=== PATIENT | female | born 1945 | race Caucasian/White ===

== ENCOUNTER → 2017-09-29 18:00 | Outpatient (CLI) | payer MEDICARE, OTHER ==
[2011-07-15 07:37] VITALS: BMI 26.6
== END | disposition home or self-care (01) ==
LOC: D.LABREF 18:00
DX: N39.0 Urinary tract infection, site not specified (principal)

== ENCOUNTER → 2017-10-05 12:06 | Outpatient (CLI) | payer MEDICARE, OTHER ==
[2011-07-15 07:37] VITALS: BMI 26.6
== END | disposition home or self-care (01) ==
LOC: D.LABREF 12:06
DX: R19.7 Diarrhea, unspecified (principal)

== ENCOUNTER → 2017-11-19 12:54 | Outpatient (CLI) | payer MEDICARE, OTHER ==
[2011-07-15 07:37] VITALS: BMI 26.6
[2017-11-19 13:25] LABS: APPEARANCE SLT CLOUDY (CLEAR); BILIRUBIN NEGATIVE (NEGATIVE); COLOR YELLOW (YELLOW); GLUCOSE NEGATIVE (NEGATIVE); KETONE NEGATIVE (NEGATIVE); NITRITE POSITIVE (NEGATIVE); PROTEIN NEGATIVE (NEGATIVE); UROBILINOGEN NORMAL (NORMAL)
[2017-11-19 13:27] LABS: EPITHELIAL CELLS 0-5 /hpf (0-5); RED CELLS - URINE 0-5 /hpf (0-5); WHITE CELLS - URINE >50 /hpf (0-5)
[2017-11-19 13:28] LABS: BACTERIA MODERATE /hpf (NONE SEEN)
== END | disposition home or self-care (01) ==
LOC: D.LAB 12:54
PROVIDERS: Student in an Organized Health Care Education/Training Program
DX: N39.0 Urinary tract infection, site not specified (principal)

== ENCOUNTER → 2017-11-23 13:45 | Outpatient (CLI) | payer MEDICARE, OTHER ==
[2011-07-15 07:37] VITALS: BMI 26.6
[2017-11-23 15:27] LABS: APPEARANCE HAZY (CLEAR); BILIRUBIN NEGATIVE (NEGATIVE); COLOR YELLOW (YELLOW); GLUCOSE NEGATIVE (NEGATIVE); KETONE NEGATIVE (NEGATIVE); NITRITE NEGATIVE (NEGATIVE); PROTEIN TRACE mg/dL (NEGATIVE); UROBILINOGEN NORMAL (NORMAL)
[2017-11-23 15:28] LABS: WHITE CELLS - URINE >50 /hpf (0-5)
[2017-11-23 15:29] LABS: RED CELLS - URINE 0-5 /hpf (0-5)
[2017-11-23 15:30] LABS: BACTERIA FEW /hpf (NONE SEEN); EPITHELIAL CELLS 0-5 /hpf (0-5)
== END | disposition home or self-care (01) ==
LOC: D.LABREF 13:45
PROVIDERS: Student in an Organized Health Care Education/Training Program
DX: N39.0 Urinary tract infection, site not specified (principal)

== ENCOUNTER → 2017-12-17 11:59 | Outpatient (CLI) | payer MEDICARE, OTHER ==
[2011-07-15 07:37] VITALS: BMI 26.6
[2017-12-17 13:43] LABS: APPEARANCE CLOUDY (CLEAR); BACTERIA MODERATE /hpf (NONE SEEN); BILIRUBIN NEGATIVE (NEGATIVE); COLOR YELLOW (YELLOW); GLUCOSE NEGATIVE (NEGATIVE); KETONE NEGATIVE (NEGATIVE); NITRITE NEGATIVE (NEGATIVE); PROTEIN NEGATIVE (NEGATIVE); RED CELLS - URINE RARE /hpf (0-5); UROBILINOGEN NORMAL (NORMAL); WHITE CELLS - URINE >50 /hpf (0-5)
== END | disposition home or self-care (01) ==
LOC: D.LABREF 11:59
PROVIDERS: Student in an Organized Health Care Education/Training Program
DX: N39.0 Urinary tract infection, site not specified (principal)

== ENCOUNTER → 2017-12-21 12:15 | Outpatient (CLI) | payer MEDICARE, OTHER ==
[2011-07-15 07:37] VITALS: BMI 26.6
[2017-12-21 13:25] LABS: APPEARANCE SLT CLOUDY (CLEAR); BILIRUBIN NEGATIVE (NEGATIVE); COLOR YELLOW (YELLOW); GLUCOSE NEGATIVE (NEGATIVE); KETONE NEGATIVE (NEGATIVE); NITRITE NEGATIVE (NEGATIVE); PROTEIN NEGATIVE (NEGATIVE); UROBILINOGEN NORMAL (NORMAL)
[2017-12-21 13:26] LABS: BACTERIA MODERATE /hpf (NONE SEEN); EPITHELIAL CELLS 0-5 /hpf (0-5); RED CELLS - URINE 0-5 /hpf (0-5); WHITE CELLS - URINE >50 /hpf (0-5)
== END | disposition home or self-care (01) ==
LOC: D.LABREF 12:15
PROVIDERS: Student in an Organized Health Care Education/Training Program
DX: N39.0 Urinary tract infection, site not specified (principal)

== ENCOUNTER → 2018-01-14 13:58 | Outpatient (CLI) | payer MEDICARE, OTHER ==
[2011-07-15 07:37] VITALS: BMI 26.6
[~2018-01-14 13:58] MED LIST: AMITRIPTYLINE150 MG PO; BENTYL10 MG PO; CALCIUM 600+D T1 TA1 PO; CARAFATE1 G PO; CIPRO500 MG PO; CO Q-1030 MG PO; COREG6.25 MG PO; CRANBERRY 400 M1 TA1 PO; EVOXAC30 MG PO; FERROUS SULFAT325 MG PO; FORTEO PEN20 MCG SQ; HYDROCODON-ACE1 EAC7 PO; K-TAB10 MEQ PO; LIPITOR20 MG PO; LOSARTAN POTASS25 MG PO; NORVASC2.5 MG PO; OMEPRAZOLE20 M1 PO; PLAQUENIL200 MG PO; PROBIOTIC BLEN1 EACH PO; TUMERIC PO; ULTRAM50 MG PO; XANAX0.25 MG PO; XARELTO20 MG PO
[2018-01-14 18:07] LABS: APPEARANCE CLEAR (CLEAR); BILIRUBIN NEGATIVE (NEGATIVE); COLOR YELLOW (YELLOW); GLUCOSE NEGATIVE (NEGATIVE); KETONE NEGATIVE (NEGATIVE); NITRITE NEGATIVE (NEGATIVE); PROTEIN NEGATIVE (NEGATIVE); UROBILINOGEN NORMAL (NORMAL); WHITE CELLS - URINE >50 /hpf (0-5)
[2018-01-14 18:08] LABS: BACTERIA MODERATE /hpf (NONE SEEN); EPITHELIAL CELLS 0-5 /hpf (0-5)
[2018-03-24 15:51] VITALS: BMI 22.6
== END | disposition home or self-care (01) ==
LOC: D.LABREF 13:58
PROVIDERS: Student in an Organized Health Care Education/Training Program
DX: N39.0 Urinary tract infection, site not specified (principal)

== ENCOUNTER → 2018-01-21 10:30 | Outpatient (CLI) | payer MEDICARE, OTHER ==
[2011-07-15 07:37] VITALS: BMI 26.6
[2018-03-24 15:51] VITALS: BMI 22.6
== END | disposition home or self-care (01) ==
LOC: D.CT 10:30
DX: Z87.442 Personal history of urinary calculi (principal)

== ENCOUNTER → 2018-02-04 16:31 | Outpatient (CLI) | payer MEDICARE, OTHER ==
[2011-07-15 07:37] VITALS: BMI 26.6
[2018-03-24 15:51] VITALS: BMI 22.6
== END | disposition home or self-care (01) ==
LOC: D.LABREF 16:31
DX: N39.0 Urinary tract infection, site not specified (principal)

== ENCOUNTER 2018-02-22 08:00 | Outpatient (CLI) | payer MEDICARE, OTHER ==
[2018-02-22 10:30] LABS: HEMATOCRIT 33.4 % (36.0-48.0); HEMOGLOBIN 11.5 g/dL (12-16); MCH 29.4 pg (26.0-34.0); MCHC 34.4 g/dL (31.0-37.0); MCV 85.4 fL (80.0-100.0); MEAN PLATELET VOLUME 9.3 fL (7.4-10.4); RBC 3.91 10x6/uL (4.00-5.40); RDW 12.6 % (11.5-14.5)
[2018-02-22] MEDS ORDERED: LOSARTAN POTASS25 MG PO (10:58)
[2018-02-22] MEDS ORDERED: K-TAB10 MEQ PO (10:59)
[2018-02-22] MEDS ORDERED: EVOXAC30 MG PO (10:59)
[2018-02-22 11:00] LABS: APPEARANCE CLEAR (CLEAR); BACTERIA FEW /hpf (NONE SEEN); BILIRUBIN NEGATIVE (NEGATIVE); COLOR YELLOW (YELLOW); EPITHELIAL CELLS RARE /hpf (0-5); GLUCOSE NEGATIVE (NEGATIVE); KETONE NEGATIVE (NEGATIVE); NITRITE NEGATIVE (NEGATIVE); PROTEIN NEGATIVE (NEGATIVE); UROBILINOGEN NORMAL (NORMAL); WHITE CELLS - URINE 0-5 /hpf (0-5)
[2018-02-22] MEDS ORDERED: AMITRIPTYLINE150 MG PO (11:00)
[2018-02-22] MEDS ORDERED: OMEPRAZOLE20 M1 PO (11:00)
[2018-02-22] MEDS ORDERED: COREG6.25 MG PO (11:00)
[2018-02-22] MEDS ORDERED: PLAQUENIL200 MG PO (11:00)
[2018-02-22] MEDS ORDERED: CARAFATE1 G PO (11:01)
[2018-02-22] MEDS ORDERED: FORTEO PEN20 MCG SQ (11:01)
[2018-02-22] MEDS ORDERED: NORVASC2.5 MG PO (11:01)
[2018-02-22] MEDS ORDERED: XARELTO20 MG PO (11:01)
[2018-02-22] MEDS ORDERED: ULTRAM50 MG PO ×2 (11:02)
[2018-02-22] MEDS ORDERED: LIPITOR20 MG PO (11:02)
[2018-02-22] MEDS ORDERED: PROBIOTIC BLEN1 EACH PO (11:03)
[2018-02-22] MEDS ORDERED: XANAX0.25 MG PO (11:03)
[2018-02-22] MEDS ORDERED: CALCIUM 600+D T1 TA1 PO (11:04)
[2018-02-22] MEDS ORDERED: CRANBERRY 400 M1 TA1 PO (11:04)
[2018-02-22] MEDS ORDERED: FERROUS SULFAT325 MG PO (11:05)
[2018-02-22] MEDS ORDERED: CO Q-1030 MG PO (11:05)
[2018-02-22] MEDS ORDERED: TUMERIC PO (11:05)
[2018-03-22] MEDS ORDERED: CIPRO500 MG PO (09:06)
[2018-03-24 15:51] VITALS: BMI 22.6
== END 2018-02-22 08:01 | disposition home or self-care (01) ==
LOC: D.OPS 08:00 → D.PAN 02-24 08:00 → D.OPS 02-24 08:00 → EDSTATUS 02-24 08:00
PROVIDERS: Anesthesiology; Urology
DX: N39.3 Stress incontinence (female) (male) (principal); N81.10 Cystocele, unspecified; N81.6 Rectocele; Z01.810 Encounter for preprocedural cardiovascular examination; Z01.811 Encounter for preprocedural respiratory examination; Z01.812 Encounter for preprocedural laboratory examination

== ENCOUNTER → 2018-02-24 18:10 | Outpatient (CLI) | payer MEDICARE, OTHER ==
[2011-07-15 07:37] VITALS: BMI 26.6
== END | disposition home or self-care (01) ==
LOC: D.LABREF 18:10
DX: N39.0 Urinary tract infection, site not specified (principal)

== ENCOUNTER → 2018-03-08 17:24 | Outpatient (CLI) | payer MEDICARE, OTHER ==
[2011-07-15 07:37] VITALS: BMI 26.6
[2018-03-08 18:09] LABS: APPEARANCE HAZY (CLEAR); BILIRUBIN NEGATIVE (NEGATIVE); COLOR DK YELLOW (YELLOW); GLUCOSE NEGATIVE (NEGATIVE); KETONE NEGATIVE (NEGATIVE); NITRITE POSITIVE (NEGATIVE); PROTEIN 1+ mg/dL (NEGATIVE); SPECIFIC GRAVITY 1.015 (1.005-1.020); UROBILINOGEN NORMAL (NORMAL)
[2018-03-08 18:11] LABS: BACTERIA MODERATE /hpf (NONE SEEN); EPITHELIAL CELLS 0-5 /hpf (0-5); RED CELLS - URINE >50 /hpf (0-5); WHITE CELLS - URINE >50 /hpf (0-5)
== END | disposition home or self-care (01) ==
LOC: D.LABREF 17:24
PROVIDERS: Urology
DX: N39.0 Urinary tract infection, site not specified (principal)

== ENCOUNTER 2018-03-24 05:55 | Day surgery (SDC) | payer MEDICARE, OTHER ==
[2018-03-22 09:37] LABS: HEMATOCRIT 33.6 % (36.0-48.0); HEMOGLOBIN 11.4 g/dL (12-16); MCH 29.1 pg (26.0-34.0); MCHC 33.9 g/dL (31.0-37.0); MCV 85.7 fL (80.0-100.0); MEAN PLATELET VOLUME 9.5 fL (7.4-10.4); RBC 3.92 10x6/uL (4.00-5.40); RDW 12.3 % (11.5-14.5)
[2018-03-22 09:59] LABS: APPEARANCE CLEAR (CLEAR); BILIRUBIN NEGATIVE (NEGATIVE); COLOR YELLOW (YELLOW); GLUCOSE NEGATIVE (NEGATIVE); KETONE NEGATIVE (NEGATIVE); NITRITE NEGATIVE (NEGATIVE); PROTEIN NEGATIVE (NEGATIVE); UROBILINOGEN NORMAL (NORMAL)
[2018-03-22 10:00] LABS: BACTERIA FEW /hpf (NONE SEEN); EPITHELIAL CELLS OCC /hpf (0-5); MUCUS <1+ /lpf (NONE SEEN)
[~2018-03-24] VITALS: Ht 167.6 cm; Wt 63.6 kg
--- NOTE | ~2018-03-24 | OP ---
PATIENT NAME: MANOJ HARP MEDICAL RECORD: [id number] :43 LOCATION:[id number] ADMISSION DATE: SURGEON: LEON WOOTEN MD DATE OF OPERATION: 03/24/2018 SURGEON: Leon Wooten MD ANESTHESIA: General anesthesia by Guillaume Carlos CRNA DIAGNOSES: Female stress urinary incontinence, midline cystocele [place]Walker grade III, rectocele [place]Walker grade II. Finally, retained InterStim pacemaker and lead. The device is ineffective. PROCEDURES: Cystoscopy. Pubovaginal sling using [employer] Xenform 2 x 7 cm bovine fascia. Cystocele repair using [employer] Xenform 8 x 12-cm fascia. Rectocele repair with levator ani plication. Removal of InterStim pacemaker and lead. FINDINGS: Cystocele [place]Walker grade III, rectocele [place]Walker grade II. On cystoscopy, she has single ureteral orifices and no bladder tumors. No bladder injury was noted. She most likely has a urinary tract infection as her urine is cloudy and foul smelling. The InterStim device is located in the right iliac crest region. ESTIMATED BLOOD LOSS: 150 mL. CLINICAL HISTORY: This is a 72-year-old female, A0. She was referred by Dr. Jelena Ott for chronic and persistent urinary tract infections. She also complains of urinary incontinence and difficulties emptying her bladder. She had a hysterectomy at age 24 for heavy menses due to fibroids. No bladder suspension was done at that time. She continues to have urgency and some degree of stress incontinence with coughing and sneezing. She has tried multiple anticholinergic medications without any benefit. She saw Dr. Pablo for her difficulties voiding. He placed an InterStim bladder pacemaker 4 years ago. The device remains on, but she is not feeling any stimulation and she finds no benefit from the device. Dr. Pablo's nurse practitioner told the patient that she has a pelvic prolapse. When I examined the patient, she has a significant prolapse with cystocele, rectocele, and enterocele. She is symptomatic from all of the above. When I manually reduced the cystocele and had the patient cough, she had significant stress urinary incontinence. She was scheduled for a pubovaginal sling, cystocele and rectocele repair as well as removal of the InterStim pacemaker and lead. In the interim, she developed another urinary tract infection with Proteus mirabilis. This was sensitive to all antibiotics. She was treated with the appropriate antibiotics and rescheduled for surgery. However, on the preoperative testing, it appears that she may have another urinary tract infection and she has some pyuria. Nevertheless, she wanted to proceed. Since I will be using fascial graft and the infection risk is low, I decided to proceed. I did have an extensive discussion with her regarding the graft material for the reconstruction. She did not want any mesh graft material. Therefore, we will be using bovine fascia. SHE HAS MULTIPLE DRUG ALLERGIES. SHE IS ALLERGIC TO ADHESIVE TAPE, AUGMENTIN, AZITHROMYCIN, CEFUROXIME, CODEINE, ERYTHROMYCIN, FLORINEF, AND LEVAQUIN. ALTHOUGH SHE IS ALLERGIC TO LEVAQUIN, SHE IS ABLE TO TOLERATE CIPROFLOXACIN. SHE IS ALSO ALLERGIC TO METOPROLOL, OXYCONTIN, PREDNISONE, AND SULFA. 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 We obtained cardiac OPERATIVE REPORT [id number] MANOJ HARP and daryn to hold the blood thinner 5 days prior to surgery. The patient had a full bowel prep the day before surgery. Due to her multiple drug allergies, we gave her gentamicin IV production painter to the OR. DESCRIPTION OF PROCEDURE: The patient was given induction of general anesthesia. She was then placed into dorsal lithotomy position and shaved, prepped and draped. While we were attempting to prep her, she actually had a large degree of fecal incontinence from her bowel prep. We finally managed to clean her up and then reprepped and redraped her. A Branham catheter was inserted into the bladder and put to bag drainage. The posterior vaginal wall had a tight band, which would prevent access. I performed an episiotomy incision on this. A weighted speculum was then used to hold the posterior vaginal wall down. We could see clearly the cystocele bulging down. The labia majora were retracted laterally using #1 nylon sutures, which were anchored to the medial thighs as a stay suture. The anterior vaginal wall was infiltrated using Pitressin solution. Twenty units of Pitressin was dissolved in 100 mL of injectable saline. This solution was used for hydrodissection. A transverse incision was made at the level of the bladder neck. We then used Metzenbaum scissors to create the plane between the undersurface of the bladder and the deep surface of the vaginal mucosa on the anterior wall. Laterally, we extended the dissection to break down the pubocervical fascia on either side. Posteriorly, we entered the presacral space, which contained the ischial spine and the sacrospinous ligament. Anteriorly, I cleaned off the surface of the obturator membrane. Our cystocele repair will be a 4-point suspension. The 2 posterior sutures will go through the sacrospinous ligaments. The 2 anterior sutures will go through the obturator membrane at its anterior apex. At these 4 points, 2-0 Prolene Capio sutures were placed. I then measured the distance between the 2 ischial spines and this came out to be 12 cm. This is the size of our bovine graft. The depth of the dissection from the bladder neck to the level of the cervical cuff was 6 cm. I therefore marked out an arch on the future posterior portion of the graft and cut out this arch. At each of the 4 corners, the suspensory sutures were placed through the bovine graft. The graft was then brought down into position. The graft arms were then tied down in turn until we had complete reduction of the cystocele. We then worked on the pubovaginal sling. A one-half inch incision was made transversely at the level of the symphysis pubis. We then used the Bovie to go down through the [place] fascia. With blunt dissection, we achieved the surface of the rectus fascia. Then, on either side of the midline, a Stamey needle was placed through the rectus fascia. An intercepting finger was in the retropubic space and this was used to guide the Stamey needle down to exit out through the vaginal dissection space. This was done on each side. At this point, the Branham catheter balloon was deflated and the catheter was removed temporarily. The patient's bladder was examined with cystoscopy. The findings are as outlined above. The urine is rather foul smelling and rather cloudy and I suspect she does have an infection. There was no sign of injury to the bladder. I distended the bladder with almost 1 liter of normal saline. With suprapubic pressure applied manually, we could elicit leakage per the urethra. We then fashioned our pubovaginal sling. A helical suture of 2-0 Prolene was applied to either end of the length of the 2 x 7 strip of bovine fascia. The suture ends were then placed through the eyelet holes of the Stamey needles and the 2 needles were withdrawn through the suprapubic incision to result in retropubic passage of the suspensory sutures of the pubovaginal sling. Hemostats were placed on the suture ends. With gradual tension, leakage per the urethra finally ceased as we applied manual suprapubic OPERATIVE REPORT [id number] MANOJ HARP pressure. I then attempted to maintain this tension. A Joyce clamp was placed between the urethra and the fascial sling to prevent over tensioning the graft while the suspensory sutures were being tied down. The suspensory sutures were then tied to each other. The excess tail length was cut off and the wound was irrigated in the suprapubic area. The suprapubic incision was closed using dipak. I then tested with further suprapubic pressure and there was only a very slight leak with very strong suprapubic manual pressure. At this point, the Branham catheter was reintroduced and the balloon inflated with 10 cc of sterile water. The vaginal wound was irrigated out using normal saline with gentamicin solution. The anterior vaginal mucosa was then closed using running 4-0 Monocryl. I also did tack the edges of the pubovaginal sling using 3-0 Vicryl to prevent the sling from curling up and to keep it flat. Similarly, the cystocele repair graft had been tacked down at the vaginal apex to prevent it from migrating away from position. Once we finished with the anterior compartment repair, we then turned to the posterior compartment. A mandi-shaped incision was marked out on the posterior vaginal wall. We had to remove the weighted speculum in order to do so. The posterior vaginal wall was infiltrated with Pitressin solution. A mandi-shaped area of the posterior vaginal wall mucosa was marked out and an incision was made using #15 blade. This mucosa was undermined using Metzenbaum scissors and removed entirely. This was sent to pathology for identification. We continued to dissect the anterior surface of the rectum and develop the plane underneath the posterior vaginal mucosa. We finally dissected laterally to allow access to the levator ani muscles on each side. Using the Capio suture charter bus driver, 2-0 Prolene sutures were used. A horizontal mattress suture was placed by going through the levator ani muscles on one side and then refiring the Capio device into the levator ani muscles of the opposite side. Once the suture was tied down, the 2 muscles were brought into the midline and approximated. This reduced the rectocele. We used 6 of these sutures in total. The final suture was to reconstruct the perineal body, which was deficient. Once the rectocele repair was completed, the wound was irrigated out using saline with gentamicin. There was an excellent repair with no defects palpable. The vaginal mucosa was reapproximated using running 4-0 Monocryl. The vaginal cavity was then packed using vaginal packing of Kerlix infiltrated with estrogen cream. At this point, the patient was placed back into supine position. We then transferred her to the stretcher. On the stretcher, we turned her over into the prone position. She was reprepped and redraped in the area of the InterStim implant. The InterStim implant resides in the area of the right iliac crest. I reopened Dr. Pablo's incision that he made. This was using a #10 blade. We then went down with Bovie until we opened up the capsule surrounding the InterStim pacemaker. Just with manipulation with my fingers, I was able to get the pacemaker device out through the incision. We then used the Bovie to free up the InterStim lead, which was coiled up. By tugging on the lead, I could detect its insertion site. This was over the level of the sacrum. A small stab incision was made here and using a hemostat, I was able to trap this lead and pull it out entirely. Because the lead has tines on it to prevent backward migration, I had to cut the lead proximal to the tines and then send the lead and the remaining lead attached to the pacemaker as a specimen for pathology. The wounds were irrigated out using saline with gentamicin solution. The wounds were closed using dipak. Dressings were applied. The Branham catheter was removed. The patient was then awakened and brought to the recovery room. If the patient is unable to void today, she will go home with a Branham catheter and we will perform a voiding trial early next week. I will be sending her home with a prescription for Hettinger 5/325, 20 tablets, with no refills and a prescription for Cipro to treat her urinary tract OPERATIVE REPORT [id number] MANOJ HARP. TRANSINT:[id number] Voice Confirmation ID: [id number] DOCUMENT ID: [id number] LEON WOOTEN MD at 0936 CC: [id number] DICTATION DATE: 03/24/18 1347 AUDIO TAPE LIBRARIAN: 03/24/18 1450 REG [facility] [address] [id number]
[~2018-03-24 05:55] MED LIST changes: -BENTYL10 MG PO; -HYDROCODON-ACE1 EAC7 PO
[2018-03-24] MEDS ORDERED: BENTYL10 MG PO (06:16)
[2018-03-24 06:31] VITALS: BP 141/47; BMI 22.6
[2018-03-24 14:57] VITALS: BP 94/30
[2018-03-24 15:51] VITALS: Ht 167.6 cm; Wt 63.6 kg
[2018-03-24 20:40] VITALS: BP 108/33
[2018-03-24 23:50] VITALS: BP 115/34
[2018-03-25 05:51] VITALS: BP 114/41
[2018-03-25] MEDS ORDERED: CIPRO500 MG PO (07:17)
[2018-03-25] MEDS ORDERED: HYDROCODON-ACE1 EAC7 PO (07:19)
[2018-03-25 08:18] VITALS: BP 123/73
[2018-03-25 13:10] VITALS: BP 129/50
== END 2018-03-25 14:53 | disposition hospice, home (50) ==
LOC: D.OPS 05:55 → D.PAN 07:30 → D.OPS 08:00 → D.MS 14:34 → D.OPS 03-25 14:53
PROVIDERS: Anesthesiology; Urology
DX: N39.46 Mixed incontinence (principal); N81.11 Cystocele, midline; N81.6 Rectocele; Z87.440 Personal history of urinary (tract) infections; Z45.89 Encounter for adjustment and management of other implanted devices; Z01.812 Encounter for preprocedural laboratory examination; Z88.1 Allergy status to other antibiotic agents; Z88.5 Allergy status to narcotic agent; Z88.2 Allergy status to sulfonamides; Z88.8 Allergy status to other drugs, medicaments and biological substances

== ENCOUNTER → 2018-04-08 18:52 | Outpatient (CLI) | payer MEDICARE, OTHER ==
[2018-03-24 15:51] VITALS: BMI 22.6
[~2018-04-08 18:52] MED LIST changes: +BENTYL10 MG PO; +HYDROCODON-ACE1 EAC7 PO
[2018-04-11 09:28] LABS: APPEARANCE CLEAR (CLEAR); COLOR YELLOW (YELLOW); NITRITE NEGATIVE (NEGATIVE); PROTEIN 1+ mg/dL (NEGATIVE)
[2018-04-11 09:29] LABS: AMORPHOUS SEDIMENT NONE SEEN /lpf (NONE SEEN); BACTERIA NONE SEEN /hpf (NONE SEEN); BILIRUBIN NEGATIVE (NEGATIVE); EPITHELIAL CELLS 0-5 /hpf (0-5); GLUCOSE NEGATIVE (NEGATIVE); GRANULAR CAST NONE SEEN /lpf (NONE SEEN); HYALINE CAST NONE SEEN /lpf (NONE SEEN); KETONE NEGATIVE (NEGATIVE); MUCUS NONE SEEN /lpf (NONE SEEN); RED CELL CAST NONE SEEN /lpf (NONE SEEN); RED CELLS - URINE 0-5 /hpf (0-5); SPERMATOZOA NONE SEEN /hpf (NONE SEEN); UROBILINOGEN NORMAL (NORMAL); WAXY CAST NONE SEEN /lpf (NONE SEEN); WHITE CELLS - URINE 0-5 /hpf (0-5); YEAST NONE SEEN /hpf (NONE SEEN)
[2018-04-11 09:30] LABS: CALCIUM OXALATE CRYSTALS 0-5 /hpf (NONE SEEN); EPITHELIAL CELL CAST NONE SEEN /lpf (NONE SEEN)
== END | disposition home or self-care (01) ==
LOC: D.LABREF 18:52
PROVIDERS: Internal Medicine
DX: D72.829 Elevated white blood cell count, unspecified (principal); R31.9 Hematuria, unspecified

== ENCOUNTER → 2018-04-20 16:51 | Outpatient (CLI) | payer MEDICARE, OTHER ==
[2018-03-24 15:51] VITALS: BMI 22.6
== END | disposition home or self-care (01) ==
LOC: D.LABREF 16:51
DX: R31.9 Hematuria, unspecified (principal); D72.829 Elevated white blood cell count, unspecified

== ENCOUNTER → 2018-05-11 17:22 | Outpatient (CLI) | payer MEDICARE, OTHER ==
[2018-03-24 15:51] VITALS: BMI 22.6
== END | disposition home or self-care (01) ==
LOC: D.LABREF 17:22
DX: N39.0 Urinary tract infection, site not specified (principal)

== ENCOUNTER → 2018-06-10 19:16 | Outpatient (CLI) | payer MEDICARE, OTHER ==
[2018-03-24 15:51] VITALS: BMI 22.6
== END | disposition home or self-care (01) ==
LOC: D.LABREF 19:16
DX: N39.0 Urinary tract infection, site not specified (principal)

== ENCOUNTER → 2018-08-30 17:42 | Outpatient (CLI) | payer MEDICARE, OTHER ==
[2018-03-24 15:51] VITALS: BMI 22.6
== END | disposition home or self-care (01) ==
LOC: D.LABREF 17:42
DX: N39.0 Urinary tract infection, site not specified (principal)

== ENCOUNTER → 2018-10-10 19:23 | Outpatient (CLI) | payer MEDICARE, OTHER ==
[2018-03-24 15:51] VITALS: BMI 22.6
[2018-10-16 17:06] LABS: AEROBE ID Preliminary report (())
== END | disposition home or self-care (01) ==
LOC: D.LABREF 19:23
PROVIDERS: ATTEND Urology
DX: D72.829 Elevated white blood cell count, unspecified (principal); R31.9 Hematuria, unspecified

== ENCOUNTER 2018-10-18 08:20 | Day surgery (SDC) | payer MEDICARE, OTHER ==
[2018-10-17 11:34] LABS: HEMATOCRIT 34.7 % (36.0-48.0); MCH 29.4 pg (26.0-34.0); MCHC 34.6 g/dL (31.0-37.0); MEAN PLATELET VOLUME 9.6 fL (7.4-10.4); RBC 4.08 10x6/uL (4.00-5.40); RDW 12.9 % (11.5-14.5); WBC 4.9 10x3/uL (4.8-10.8)
[~2018-10-18] VITALS: Ht 167.6 cm; Wt 59.0 kg
[~2018-10-18 08:20] MED LIST changes: +CLEOCIN HCL300 MG PO; +EVOXAC30 MG; +NORVASC5 MG PO
[2018-10-18] MEDS ORDERED: XARELTO20 MG PO (08:58)
[2018-10-18 09:08] VITALS: BP 146/58; Ht 167.6 cm; Wt 59.0 kg
--- NOTE | 2018-10-18 18:13 | NUR ---
PT RESTING ON LET SIDE. TOLERATING FEW ICE CHIPS FLAVORED WITH SODA. AT BEDSIDE. RX GIVEN TO TO FILL.
--- NOTE | 2018-10-18 18:24 | NUR ---
WENT TO PHARMACY TO GET RX FILLED
--- NOTE | 2018-10-18 19:51 | NUR ---
1845 ASSISTED ON BEDPAN AND PTS VAGINAL PACKING REMOVED. SMALL AMT OF SEROUS BLOOD NOTED. 1904 ZOFRAN GIVEN IV NAUSEA AND VOMITING SMALL AMT. 1914 DR WOOTEN NOTIFIED OF NAUSEA AND THAT PT STATED PHENERGAN WORKED FOR HER AND SHE HAS SOME AT HOME, AND BLADDER SCAN WAS 470ML. ORDERS GIVEN FOR PHENERGAN AND INSERT GONZALEZ. 1939 GONZALEZ INSERTED W/O DIFFICULTY. CLEAR YELLOW URINE NOTED. PT RECIEVED 800 IV FLUIDS IN OUTPT DEPT. PT HAS A HISTORY OF GERD AND HOB ELEVATED. GONZALEZ WITH STAFTY LOCK ON INNER THIGH. 1954 RETURN FROM PHARMACY
--- NOTE | 2018-10-18 20:41 | NUR ---
2014 IV REMOVED PRESSURE HELD DRESSING APPLIED. GONZALEZ TO GRAVITY BAG WITH PINK TINGE URINE, NO CLOTS. INSTRUCTIONS GIVEN TO PT AND AND DEMONSTRATED HOW TO EMPTY GONZALEZ BAG AND WHEN. GLOVES AND CONTAINER GIVEN TO PT. PT WAS NAUSEATED WHEN SHE SAT UP. NO EMESIS NOTED.NAUSE EASED AND PT ASSISTED IN CAR.
--- NOTE | 2018-10-19 12:21 | OP ---
PATIENT NAME: MANOJ HARP MEDICAL RECORD: [id number] :43 LOCATION:D.[facility] ADMISSION DATE: SURGEON: LEON WOOTEN MD DATE OF OPERATION: 10/18/2018 SURGEON: Leon Wooten MD ANESTHESIA: General anesthesia by Kim Negrete CRNA. DIAGNOSES: Female stress urinary incontinence, recurrence of cystocele [place]-Walker grade II. PROCEDURES: Cystoscopy, pubovaginal sling with mesh [employer] Obtryx, cystocele repair with mesh [employer] Uphold. FINDINGS: On cystoscopy, inflamed bladder due to a recent UTI. No bladder tumors. No bladder injury. BLOOD LOSS: Minimal. SPECIMENS: None. CLINICAL HISTORY: This is a 72-year-old female, who is status post hysterectomy. Back in April of 2018, she had a pubovaginal sling and cystocele repair using bovine fascia. This was for a pelvic prolapse. She also had a rectocele repair. Lately, she has had issues with recurrent urinary tract infections as well as recurrence of stress incontinence. On examination, she had a grade II cystocele recurrence. The fascia seems to have become quite attenuated and it did not hold. She comes today to have a repeat procedure done to repair the cystocele as well as correct the stress urinary incontinence. We will be using mesh. She recently had another urinary tract infection, for which she is being treated with clindamycin. I gave her IV clindamycin conference producer to the OR. DESCRIPTION OF PROCEDURE: The patient was given induction of general anesthesia while in supine position. We then placed her in dorsal lithotomy position and prepped and draped her. A Branham catheter was put into the bladder and put to bag drainage. A weighted speculum was used to hold the posterior vaginal wall down. The #2 nylon sutures were used through the labia majora and anchored to the medial thighs to act as stay sutures to retract the labia majora laterally. Anterior vaginal wall was then infiltrated with Pitressin solution. Twenty units of Pitressin was dissolved in 100 mL of injectable saline. This was used for hydrodissection of the anterior vaginal wall. A T-shaped incision was made with the top bar of the T about 5 mm away from the urethral meatus and the vertical bar of the T running along the anterior vaginal wall midline. Dissection was performed using Metzenbaum scissors. We could easily dissect away the plane between the bladder and the anterior vaginal wall due to the presence of the fascia. I entered the retropubic space of Retzius anteriorly. Posteriorly, we entered the presacral space containing the ischial spine and the sacrospinous ligaments. We then landmarked the placement of the [employer] Uphold posterior graft arms through the sacrospinous ligaments. These graft arms were loaded on to the Capio suture cattle driver. About 1 cm medial to the ischial spine, the graft arm was placed through the sacrospinous ligament going from anterior to posterior. The reason for staying 1 cm medial is to avoid hitting the internal pudendal artery and the nerves. Once both graft arms OPERATIVE REPORT [id number] MANOJ HARP were in position, it was gently pulled down. The apex of the vaginal dissection was sutured to the notch in the graft using a 3-0 Vicryl. This prevented the graft from just shifting and displacing itself. Also, the anterior portion of the graft in the midline was sutured to the undersurface of the bladder using a 3-0 Vicryl. Again, this prevented the graft from curling up under tension. We then landmarked for the transobturator passage of the pubovaginal sling. The landmark is just inferior to the insertion of the adductor longus muscle on the descending pubic ramus. A tran was made here on either side using a marking pen. A stab incision was made here. The helical trocar of the [employer] Obtryx system was placed through the groin incision and it was run behind the descending pubic ramus and exited into the vaginal dissection space through the anterior apex of the obturator membrane. Here the graft arm was attached to the tip of the helical trocar and as the helical trocars were withdrawn on each side, this resulted in transobturator passage of the graft. The sling was then placed in the mid urethral level. There was a tab on the sling, which defines the midpoint of the sling. This was placed under the mid urethral level. The tab was then removed. The Branham catheter was then removed. I performed cystoscopy using a 17-Jamaican cystoscope and the 30-degree lens. No bladder injury was seen. The bladder was filled up to the cystoscope. By applying manual pressure suprapubically, we could elicit some leakage of urine. Gradually, the tension on the sling was increased until there was no leakage with any reasonable amount of pressure suprapubically applied. At this point, the graft arms were cut off where they exited the skin. The clear plastic sheath material on the graft arms have been completely removed before by clipping a suture and pulling. The graft arms of the cystocele repair were also removed. The wound was irrigated with sterile saline. The incision was closed using running 4-0 Monocryl. A red rubber catheter was used to drain the bladder and then the catheter was removed. Vaginal packing consisting of Kerlix infiltrated with estrogen cream was placed into the vagina. This will be removed in a few hours' time. The patient will be going home today. If she is unable to void, then she will be going home with a Branham catheter to bag drainage. I will see her back in a couple of days in order to perform a voiding trial if that is the case. Otherwise, I will see her in followup next week to check on her symptoms. TRANSINT:[id number] Voice Confirmation ID: [id number] DOCUMENT ID: [id number] LEON WOOTEN MD at 1221 CC: [id number] DICTATION DATE: 10/18/18 180 TEST EVALUATOR: 10/18/18 2303 [facility] 10/18/[id number] [place] [address]
== END 2018-10-18 20:35 | disposition home or self-care (01) ==
LOC: D.OPS 08:20 → D.PAN 11:15 → D.OPS 11:15 → D.PAN 12:05 → D.OPS 12:30
PROVIDERS: Anesthesiology; ATTEND Urology
DX: N39.3 Stress incontinence (female) (male) (principal); N81.11 Cystocele, midline; Z87.440 Personal history of urinary (tract) infections; Z01.812 Encounter for preprocedural laboratory examination

== ENCOUNTER → 2018-10-28 13:14 | Outpatient (CLI) | payer MEDICARE, OTHER ==
[2018-10-18 09:08] VITALS: BMI 21.0
== END | disposition home or self-care (01) ==
LOC: D.LABREF 13:14
PROVIDERS: ATTEND Internal Medicine
DX: R31.9 Hematuria, unspecified (principal); D72.829 Elevated white blood cell count, unspecified